=== PATIENT | female | born 1975 | race Hispanic/Latino ===

== ENCOUNTER 2022-08-10 00:04 | Emergency (ER) | payer OTHER ==
[~2022-08-10] VITALS: Ht 167.6 cm; Wt 154.7 kg
[2022-08-10] MEDS ORDERED: DiphenhydrAMINE HCL 50 MG/ML VIAL IM ONE (01:30)
[2022-08-10] MEDS ORDERED: CLONIDINE HCL 0.2 MG TABLET PO ONE (01:30)
[2022-08-10] MEDS ORDERED: PROMETHAZINE HCL 25 MG/ML 1ML AMPULE IM ONE (01:30)
[2022-08-10] MEDS ORDERED: PROC5TAB54 PO (04:25)
[2022-08-10 04:36] VITALS: BP 126/52
== END 2022-08-10 04:38 | disposition home or self-care (01) ==
LOC: EDH 00:04
DX: I10 Essential (primary) hypertension (principal); G43.909 Migraine, unspecified, not intractable, without status migrainosus; J45.909 Unspecified asthma, uncomplicated; Z90.710 Acquired absence of both cervix and uterus; Z98.890 Other specified postprocedural states
CPT/HCPCS: 99284; 96372 ×2; J1200; J2550